=== PATIENT | female | born 1940 | race African-American/Black ===

== ENCOUNTER 2021-09-30 18:02 | Inpatient (IN) | payer MEDICARE, OTHER ==
[~2021-09-30] VITALS: Ht 170.2 cm; Wt 107.0 kg
--- NOTE | 2021-09-30 18:16 | NUR ---
To ER bed 10, BIB Daughter "Around 5pm while going up the stairs felt pain on left arm, feels like charley horse/cramp all the way to fingertips", was given hot compress at home with slight relief, aaox4, breathing even and non labored, connected to monitor, awaiting md orders
--- NOTE | 2021-09-30 18:55 | NUR ---
saline lock established, blood drawn and sent to lab
[2021-09-30 19:43] LABS: CALCIUM, SERUM 8.8 mg/dL (8.5-10.1); CARBON DIOXIDE 31 mmol/L (21-32); CHLORIDE 105 mmol/L (98-107); CREATININE 1.4 mg/dL (0.6-1.3); GLUCOSE 100 mg/dL (74-106); POTASSIUM 3.3 mmol/L (3.5-5.1); SODIUM SERUM 141 mmol/L (136-145); UREA NITROGEN, BLOOD 22 mg/dL (7-18)
[2021-09-30 19:48] LABS: BASOPHILS # (AUTO) 0.1 K/uL (0.0-0.2); EOSINOPHILS % (AUTO) 4.8 % (0.0-6.0); HEMATOCRIT 39 % (33-45); HEMOGLOBIN 12.8 g/dL (11.5-14.8); LYMPHOCYTES % (AUTO) 41.8 % (20.0-44.0); MEAN CORPUSCULAR HGB CONC 33 g/dl (31.0-36.0); MEAN CORPUSCULAR VOLUME 94 fL (82-100); MONOCYTES # (AUTO) 0.5 K/uL (0.1-1.30); MONOCYTES % (AUTO) 5.1 % (2.0-12.0); NEUTROPHILS # (AUTO) 4.5 K/uL (1.8-8.9); NEUTROPHILS % (AUTO) 47.3 % (43.0-81.0); PLATELET COUNT (AUTO) 333 K/uL (150-450); WHITE BLOOD COUNT (AUTO) 9.4 K/uL (4.3-11.0)
--- NOTE | 2021-09-30 19:53 | NUR ---
PER DR. MELO CT CHEST ORDER D/C. PT ALLERGIC TO IODINE
[2021-09-30 20:35] LABS: EOSINOPHILS % (MANUAL) 7 % (0-4); LYMPHOCYTES % (MANUAL) 43 % (16-48); MONOCYTES % (MANUAL) 3 % (0-11.0); NEUTROPHILS % (MANUAL) 46 (42-76); REACTIVE LYMPHOCYTES 1 % (0-0)
[2021-09-30] MEDS ORDERED: POTASSIUM CHLORIDE 20 MEQ TAB.PRT.SR PO ONE ×2 (20:39→21:00)
--- NOTE | 2021-09-30 20:51 | NUR ---
COVID ANTIGEN SWAB COLLECTED AND SENT TO LAB. UPDATED KAT DAUGHTER [phone]
[2021-09-30] MEDS ORDERED: diphenhydrAMINE HCL 50 MG/ML VIAL ONE (21:29)
[2021-09-30] MEDS ORDERED: diphenhydrAMINE HCL 50 MG/ML VIAL IV ONE (21:30)
[2021-09-30] MEDS ORDERED: IOHEXOL-350 100 ML VIAL IV ONE (21:38)
[2021-09-30] MEDS ORDERED: CT SWABBABLE VALVE TRANS SET 1 EA INFUS.SET MC ONE (21:39)
[2021-09-30] MEDS ORDERED: IV NS 0.9% 250 ML IV ONE (21:39)
--- NOTE | 2021-09-30 21:45 | NUR ---
PT ambulatory to restroom with a steady gait; pt continent and ADLS done
--- NOTE | 2021-09-30 21:51 | NUR ---
PER DR. MELO. ORDER TO DO CT CONTRAST OF LUE. PT AWARE OF BENEFITS VS RISK CONSIDERING PT ALLERGIC TO IODINE. BENEDRYL IVP ADMINSTERED ORDERED. WILL MONITOR CLOSELY FOR S/SX OF A/R TO CT CONTRAST. PT TAKEN TO CT VIA [facility]. VSS.
[2021-09-30] MEDS ORDERED: AMOX/CLAVULANATE 875 MG TABLET PO ONE (22:00)
[2021-09-30] MEDS ORDERED: IV NS 0.9% 500 ML BAG IV ONE (22:00)
[2021-09-30] MEDS ORDERED: AMOX/CLAVULANATE 875 MG TABLET ONE (22:03)
--- NOTE | 2021-09-30 22:06 | NUR ---
PT RETURNED TO ER BED [address] [facility] [facility]. NO ALLERGIC REACTIONS NOTED WILL CONTINUE TO MONITOR CLOSELY
--- NOTE | 2021-09-30 22:46 | NUR ---
PT SEEN BY MINO TORRES NP
[2021-09-30] MEDS ORDERED: MAGNESIUM HYDROXIDE 30 ML UDC PO PRN (23:00)
[2021-09-30] MEDS ORDERED: ACETAMINOPHEN 325 MG TABLET PO PRN (23:00)
[2021-09-30] MEDS ORDERED: ONDANSETRON HCL/PF 4 MG/2 ML VIAL IVP PRN (23:00)
[2021-09-30] MEDS ORDERED: ZOLPIDEM TARTRATE 5 MG TABLET PO PRN (23:00)
[2021-09-30] MEDS ORDERED: MAG HYDROX/AL HYDROX/SIMETH 30 ML UDC PO PRN (23:00)
[2021-09-30] MEDS ORDERED: Z GUARD REMEDY 4 OZ OINT TP PRN (23:00)
--- NOTE | 2021-09-30 23:35 | NUR ---
REPORT GIVEN TO RUSTAM Hauser RN FOR RONALDO
--- NOTE | 2021-09-30 23:59 | NUR ---
PT TRANSFERRED TO 328-1 VIA ACLS PROTOCOL. VSS. ALL BELONGINGS WITH PT.
[2021-10-01] VITALS (7 sets, daily range): BP systolic 111–168; BP diastolic 50–92
--- NOTE | 2021-10-01 | NUR ---
RN NOTES RECEIVED PATIENTFROM ER WITH DX. OF CHEST PAIN, ALOX4, AMBULATORY, SR ON TELE MONITOR HR-72. DENIES PAIN, NO SOB, BILATERAL LOWER LEG SWOLLEN, ADMISSION INSTRUCTIONS WAS GIVEN, CALL LIGHT WITHIN REACH, SIDERAILSUPX2, WILL CONTINUE TO MONITOR
[2021-10-01] MEDS ORDERED: DORZ10DR13 EACHEYE (01:09)
[2021-10-01] MEDS ORDERED: ASPI-1169 PO (01:09)
[2021-10-01] MEDS ORDERED: LOVA20TA2 PO (01:09)
[2021-10-01] MEDS ORDERED: LATA2.5D2 OP (01:09)
[2021-10-01] MEDS ORDERED: LEVO5TAB13 PO (01:09)
[2021-10-01] MEDS ORDERED: VIT D2 ×2 (01:09→15:01)
[2021-10-01] MEDS ORDERED: OLME1TAB22 PO (01:09)
--- NOTE | 2021-10-01 06:42 | NUR ---
RN NOTES SLEEPING BUT AROUSABLE, DENIES PAIN, NO SOB, CALL LIGHT WITHIN REACH, SIDERAILSUPX2, PT. NEEDS ATTENDED
[2021-10-01 07:22] LABS: BASOPHILS # (AUTO) 0.1 K/uL (0.0-0.2); EOSINOPHILS % (AUTO) 5.2 % (0.0-6.0); HEMATOCRIT 39 % (33-45); HEMOGLOBIN 12.8 g/dL (11.5-14.8); LYMPHOCYTES # (AUTO) 3.3 K/uL (0.8-4.8); LYMPHOCYTES % (AUTO) 43.9 % (20.0-44.0); MEAN CORPUSCULAR HGB CONC 33 g/dl (31.0-36.0); MEAN CORPUSCULAR VOLUME 94 fL (82-100); MONOCYTES # (AUTO) 0.4 K/uL (0.1-1.30); MONOCYTES % (AUTO) 5.6 % (2.0-12.0); NEUTROPHILS # (AUTO) 3.4 K/uL (1.8-8.9); NEUTROPHILS % (AUTO) 44.3 % (43.0-81.0); PLATELET COUNT (AUTO) 296 K/uL (150-450); RED BLOOD CELL COUNT(AUTO) 4.17 MIL/uL (4.0-5.2); WHITE BLOOD COUNT (AUTO) 7.6 K/uL (4.3-11.0)
[2021-10-01 07:31] LABS: CARBON DIOXIDE 27 mmol/L (21-32); CHLORIDE 107 mmol/L (98-107); CREATININE 1.2 mg/dL (0.6-1.3); GLUCOSE 98 mg/dL (74-106); MAGNESIUM 2.3 mg/dL (1.8-2.4); PHOSPHORUS 4.2 mg/dL (2.5-4.9); POTASSIUM 3.6 mmol/L (3.5-5.1); SODIUM SERUM 141 mmol/L (136-145); UREA NITROGEN, BLOOD 20 mg/dL (7-18)
--- NOTE | 2021-10-01 07:55 | NUR ---
FLASH WELDING MACHINE OPERATOR OPENING NOTES RECEIVED PATIENT IN BED, AWAKE, A/O X4. PATIENT ON ROOM AIR; BREATHING EVEN AND UNLABORED; NO SOB NOTED. NO COMPLAINS OF PAIN. TELE MONITOR WITH A CURRENT READING OF SR 76 BPM. RAC IV ACCESS G #18 PRESENT AND INTACT. SAFETY PRECAUTIONS IN PLACE; BED IN LOW POSITION AND LOCKED, RAILS UP X2, CALL LIGHT WITHIN REACH. WILL CONTINUE TO MONITOR PATIENT.
[2021-10-01] MEDS: ASPIRIN 81 MG TAB.CHEW PO SCH (08:32)
[2021-10-01] MEDS: LATANOPROST EYE DROP 0.005% 2.5 ML BOTTLE OP SCH (08:32)
[2021-10-01] MEDS: TIMOLOL MAL/DORZOLAM HCL OPHTH 10 ML BOTTLE EACHEYE SCH ×2 (08:32→16:41)
[2021-10-01] MEDS ORDERED: ASPIRIN 81 MG TAB.CHEW PO SCH (09:00)
[2021-10-01] MEDS: LOSARTAN POTASSIUM 50 MG TABLET PO SCH (09:00)
[2021-10-01] MEDS: HYDROCHLOROTHIAZIDE 25 MG TABLET PO SCH (09:00)
[2021-10-01] MEDS ORDERED: cetrizine 10 MG TABLET PO SCH (09:00)
--- NOTE | 2021-10-01 09:20 | NUR ---
PIPE SMOKING MACHINE OFFBEARER NOTES BP 115/61 HR 57 PER PATIENT THIS IS A LOW BP FOR HER
[2021-10-01] MEDS: cetrizine 10 MG TABLET PO SCH (10:39)
[2021-10-01 10:53] LABS: CALCIUM, SERUM 8.6 mg/dL (8.5-10.1)
--- NOTE | 2021-10-01 15:00 | NUR ---
CRUSHER LOADER EQUIPMENT OPERATOR NOTES CHEMICAL PROPHYLAXIS IN PLACE. COMPRESSION DEVICES NOT ORDERED DUE TO EDEMA IN BILATERAL LEGS
[2021-10-01] MEDS: ENOXAPARIN SODIUM 40 MG/0.4 ML DISP.SYRIN SQ SCH (15:21)
--- NOTE | 2021-10-01 18:35 | NUR ---
OFFICE PROFESSIONALS CLOSING NOTES PATIENT REMAINS IN BED, AWAKE, A/O X4. PATIENT ON ROOM AIR; BREATHING EVEN AND UNLABORED; NO SOB NOTED DURING SHIFT. NO COMPLAINS OF PAIN. TELE MONITOR WITH A CURRENT READING OF SR. RAC IV ACCESS G #18 PRESENT AND INTACT. ALL NEEDS ATTENDED DURING THE DAY. SAFETY PRECAUTIONS IN PLACE; BED IN LOW POSITION AND LOCKED, RAILS UP X2, CALL LIGHT WITHIN REACH. WILL ENDORSE TO CANNERY WORKER NURSE FOR RONALDO.
--- NOTE | 2021-10-01 19:15 | NUR ---
RN OPENING NOTE PATIENT IN BED, AWAKE. A/O X 4 ABLE TO MAKE NEEDS KNOWN. PATIENT IS ON RA TOLERATING WELL, NO REPORTS OF ANY CHEST PAIN AT THIS TIME OR DYSPNEA. RAC 18 G PATENT AND INTACT, FLUSHING WELL. PATIENT ABLE TO AMBULATE TO BATHROOM STEADILY. SAFETY MEASURES IN PLACE: BED LOCKED AND IN LOWEST POSITION, CALL LIGHT WITHIN REACH, SIDE RAILS UP. WILL MONITOR PATIENT CLOSELY.
[2021-10-01] MEDS ORDERED: ATORVASTATIN 10 MG TABLET PO SCH (22:00)
[2021-10-02] VITALS: BP 120/41
[2021-10-02 04:00] VITALS: BP 115/53
--- NOTE | 2021-10-02 06:42 | NUR ---
RN CLOSING NOTE PATIENT IN BED, EYES CLOSED, EAISLY AWAKENED. A/O X 4 ABLE TO MAKE NEEDS KNOWN. PATIENT IS ON RA TOLERATING WELL, NO REPORTS OF ANY CHEST PAIN THROUGHOUT THE SHIFT OR DIFFICULTY BREATHING. RAC 18 G PATENT AND INTACT, FLUSHING WELL. TELE MONITOR READS SR 67 BPM. PATIENT ABLE TO AMBULATE TO BATHROOM STEADILY. SAFETY MEASURES IN PLACE: BED LOCKED AND IN LOWEST POSITION, CALL LIGHT WITHIN REACH, SIDE RAILS UP. ALL NEEDS MET AND ATTENDED. ALL ORDERS CARRIED OUT, WILL ENDORSE TO DAY SHIFT NURSE FOR RONALDO.
--- NOTE | 2021-10-02 07:34 | NUR ---
LITIGATION DOCKET MANAGER OPENING NOTES RECEIVED PATIENT IN BED, EYES CLOSED, AROUSABLE BY NAME TO A/O X 4. ABLE TO MAKE NEEDS KNOWN. PATIENT IS ON RA TOLERATING WELL, NO REPORTS OF ANY PAIN OR DIFFICULTY BREATHING. RAC 18 G PATENT AND INTACT, FLUSHING WELL. TELE MONITOR READS NSR 70s. PATIENT ABLE TO AMBULATE TO BATHROOM STEADILY. SAFETY MEASURES IN PLACE: BED LOCKED AND IN LOWEST POSITION, CALL LIGHT WITHIN REACH, SIDE RAILS UP. ALL NEEDS MET AND ATTENDED. WILL CONTINUE TO MONITOR.
[2021-10-02 08:00] VITALS: BP 115/63
[2021-10-02] MEDS: TIMOLOL MAL/DORZOLAM HCL OPHTH 10 ML BOTTLE EACHEYE SCH ×2 (09:13→16:39)
[2021-10-02] MEDS: ENOXAPARIN SODIUM 40 MG/0.4 ML DISP.SYRIN SQ SCH (09:13)
[2021-10-02] MEDS: LATANOPROST EYE DROP 0.005% 2.5 ML BOTTLE OP SCH (09:14)
[2021-10-02] MEDS: HYDROCHLOROTHIAZIDE 25 MG TABLET PO SCH (09:14)
[2021-10-02] MEDS: cetrizine 10 MG TABLET PO SCH (09:15)
[2021-10-02] MEDS: LOSARTAN POTASSIUM 50 MG TABLET PO SCH (09:15)
[2021-10-02] MEDS: ASPIRIN 81 MG TAB.CHEW PO SCH (09:15)
[2021-10-02] MEDS ORDERED: diphenhydrAMINE HCL 50 MG/ML VIAL IV STA (10:11)
--- NOTE | 2021-10-02 10:23 | NUR ---
BAND SPLITTER NOTES PATIENT REQUESTED ONE TIME DOSE OF BENADRYL PRIOR TO CT OF HEART THIS MORNING. 25 MG IVP BENADRYL ADMINISTERED ORDERED BY MD, CONSENTS SIGNED FOR PROCEDURE BY PATIENT, AND PATIENT TRANSPORTED DOWNSTAIRS FOR PROCEDURE. MD AND RADIOLOGY INFORMED THAT PATIENT IS ALLERGIC TO IODINE.
[2021-10-02] MEDS ORDERED: METOPROLOL TARTRATE INJ 5 MG/5 ML AMPUL ONE (10:26)
[2021-10-02] MEDS ORDERED: CT SWABBABLE VALVE TRANS SET 1 EA INFUS.SET MC ONE (10:26)
[2021-10-02] MEDS ORDERED: IOHEXOL-350 100 ML VIAL IV ONE (10:26)
[2021-10-02] MEDS ORDERED: NITROGLYCERIN 0.4 MG/TAB BOTTLE ONE (10:26)
[2021-10-02] MEDS ORDERED: IV NS 0.9% 250 ML IV ONE (10:27)
[2021-10-02] MEDS ORDERED: NITROGLYCERIN 0.4 MG/TAB BOTTLE SL ONE (10:30)
[2021-10-02] MEDS ORDERED: METOPROLOL TARTRATE INJ 5 MG/5 ML AMPUL IVP PRN (10:30)
[2021-10-02 10:52] LABS: CHOLESTEROL 173 mg/dL (<200); TRIGLYCERIDES 80 mg/dL (30-150)
[2021-10-02 10:54] LABS: HDL CHOLESTEROL 80 mg/dL (40-60); LDL 71 mg/dL (0-99)
[2021-10-02 12:00] VITALS: BP 120/60
[2021-10-02 16:00] VITALS: BP 157/75
--- NOTE | 2021-10-02 18:38 | NUR ---
RN DISCHARGED NOTES PT DISCHARGED HOME IN STABLE CONDITION. A/O X4. ABLE TO MAKE NEEDS KNOWN. V/S TAKEN, STABLE AND RECORDED. ALL BELONGINGS ACCOUNTED FOR AND PT SIGNED BELONGINGS LIST. HOME MEDICATIONS HANDED TO PT. PHOTOS OF SKIN ISSUES TAKEN AND FILED IN HER CHART. IV ACCESS ON LAC REMOVED WITH NO ACTIVE BLEEDING NOTED, DRY PRESSURE DRESSING APPLIED AT SITE. NAME ARMBAND REMOVED. HEALTH TEACHINGS/DISCHARGED INSTRUCTIONS GIVEN TO PT AND VERBALIZED UNDERSTANDING. PT LEFT UNIT VIA WHEELCHAIR AT 1835 ACCOMPANIED BY FELIPA GAMBLE. PT'S DAUGHTER KAT WILL TAKE PT'S HOME. MD AND CHARGE NURSE AWARE OF DISCHARGE.
== END 2021-10-02 18:38 | disposition home or self-care (01) | DRG 304 ==
LOC: ER 18:04 → TELE 23:12
PROVIDERS: ADMIT Nurse Practitioner Acute Care; ATTEND Internal Medicine
DX: I16.0 Hypertensive urgency (principal); N17.0 Acute kidney failure with tubular necrosis; I12.9 Hypertensive chronic kidney disease with stage 1 through stage 4 chronic kidney disease, or unspecified chronic kidney disease; N28.1 Cyst of kidney, acquired; N18.9 Chronic kidney disease, unspecified; E78.5 Hyperlipidemia, unspecified; Z91.041 Radiographic dye allergy status; M54.9 Dorsalgia, unspecified; H40.9 Unspecified glaucoma; M19.90 Unspecified osteoarthritis, unspecified site; E66.9 Obesity, unspecified; Z68.36 Body mass index [BMI] 36.0-36.9, adult; E87.6 Hypokalemia
CPT/HCPCS: 36415; 70450-TC; 71045-TC; 75574; 80048-TC; 80061-TC; 83735-TC; 83880; 84100-TC; 84484-TC; 85025-TC; 85378-TC; 87081-TC; 93307-TC; 93970-TC; 97116-TC; 97530-TC; C9803; G0378; J1200; J1650; J3490; J7040; J7050; Q9967